=== PATIENT | male | born 1990 | race Two or more races ===

== ENCOUNTER 2022-09-05 02:32 | Emergency (ER) | payer OTHER ==
[~2022-09-05] VITALS: Ht 188 cm; Wt 99.8 kg
[2022-09-05] MEDS ORDERED: LEVOFLOXACIN500 MG PO (12:30)
[2022-09-05] MEDS ORDERED: MOBIC7.5 MG PO (12:30)
[2022-09-05] MEDS ORDERED: TAMS0.4C PO (12:30)
[2022-09-05] MEDS ORDERED: PERCOCET 5-3251 EACH PO (12:30)
== END 2022-09-05 13:41 ==
LOC: ER 02:32
DX: N20.9 Urinary calculus, unspecified (principal); N20.0 Calculus of kidney; K76.0 Fatty (change of) liver, not elsewhere classified

== ENCOUNTER 2022-11-04 06:03 | Emergency (ER) | payer OTHER ==
[~2022-11-04] VITALS: Ht 188 cm; Wt 99.8 kg
[~2022-11-04 06:03] MED LIST: LEVOFLOXACIN500 MG PO; MOBIC7.5 MG PO; PERCOCET 5-3251 EACH PO; TAMS0.4C PO
== END 2022-11-04 14:19 | disposition home or self-care (01) ==
LOC: ER 06:03
DX: N21.0 Calculus in bladder (principal); R10.32 Left lower quadrant pain